=== PATIENT | female | born 1960 | race Caucasian/White ===

== ENCOUNTER 2020-05-15 04:36 | Day surgery (SDC) | payer OTHER ==
[2020-05-14 13:51] VITALS: BMI 30.9
[2020-05-15] MEDS ORDERED: PROPOFOL 20 ML ONE (07:17)
[2020-05-15] MEDS ORDERED: MIDAZOLAM HCL 2 MG/2 ML SINGLE DOSE VIAL ONE (07:17)
[2020-05-15] MEDS ORDERED: LIDOCAINE HCL/PF 2% SDV 5ML VIAL ONE (07:17)
[2020-05-15] MEDS ORDERED: DEXAMETHASONE SOD PHOSPHATE 4 MG/1 ML VIAL ONE (07:17)
[2020-05-15] MEDS ORDERED: EPHEDRINE SULFATE/0.9% NACL/PF 50 MG/10 ML SYRINGE NR ONE (07:43)
[2020-05-15] MEDS ORDERED: DESFLURANE GAS 240 ML BOTTLE IH ONE (07:58)
[2020-05-15] MEDS ORDERED: IBUPROFEN 800 MG/8 ML IJ IVPB PRN (08:30)
[2020-05-15] MEDS ORDERED: IBUPROFEN 600 MG TABLET (FP) PO PRN (08:30)
[2020-05-15] MEDS ORDERED: ELECTROLYTE-148 SOLN 1,000 ML IV SCH (08:30)
[2020-05-15] MEDS ORDERED: ONDANSETRON 4 MG/2 ML VIAL IVPUSH PRN (08:30)
[2020-05-15] MEDS ORDERED: oxyCODONE HCL 5 MG TABLET PO PRN ×3 (08:30→09:13)
[2020-05-15] MEDS ORDERED: LACTATED RINGERS SOLUTION 1,000 ML IV SCH (09:15)
[2020-05-15 10:22] VITALS: BP 129/86; PULSE 88; TEMP 97.3
== END 2020-05-15 10:40 | disposition home or self-care (01) ==
LOC: JASU-SURG 04:36
PROVIDERS: ATTEND Obstetrics & Gynecology
PROC: 0UDB7ZX Extraction of Endometrium, Via Natural or Artificial Opening, Diagnostic (ICD-10-PCS; 2020-05-15)
PROC: 0UJD8ZZ Inspection of Uterus and Cervix, Via Natural or Artificial Opening Endoscopic (ICD-10-PCS; 2020-05-15)
PROC: 0UB98ZZ Excision of Uterus, Via Natural or Artificial Opening Endoscopic (ICD-10-PCS; principal; 2020-05-15 07:30)
PROC: 0UB97ZX Excision of Uterus, Via Natural or Artificial Opening, Diagnostic (ICD-10-PCS; 2020-05-15 07:30)
DX: D25.0 Submucous leiomyoma of uterus (principal); N84.0 Polyp of corpus uteri
CPT/HCPCS: 88305-TC; 94760